=== PATIENT | female | born 1955 | race Caucasian/White ===

== ENCOUNTER 2022-12-16 18:49 | Emergency (ER) | payer OTHER ==
[~2022-12-16] VITALS: Ht 170.2 cm; Wt 93.9 kg
--- NOTE | 2022-12-16 18:57 | NUR ---
[facility] TO BED #8
[2022-12-16 18:58] VITALS: BP 122/58
--- NOTE | 2022-12-16 19:21 | NUR ---
Cira tesfaye in [facility] - 12/16/22 at 1921 by [facility] REPORT GIVEN TO LUCIANA TAYLOR TRANSFER OF CARE AT THIS TIME
--- NOTE | 2022-12-16 19:31 | NUR ---
pt getting blood drawn
[2022-12-16 19:35] LABS: HEMATOCRIT 42.9 % (36-48); HEMOGLOBIN 14.3 g/dL (12.0-16.0); MEAN CORPUSCULAR HEMOGLOBIN 31 pg (27-31); MEAN CORPUSCULAR HGB CONC 33 g/dL (33-37); PLATELET COUNT (AUTO) 324 K/uL (140-450); RED BLOOD CELL COUNT(AUTO) 4.61 MIL/uL (4.20-5.40); RED CELL DISTRIBUTION WIDTH 13.4 % (11.6-13.7); WHITE BLOOD COUNT (AUTO) 10.2 K/uL (4.8-10.8)
[2022-12-16 19:36] LABS: BASOPHILS % (AUTO) 0.2 % (0.0-2.0); EOSINOPHILS # (AUTO) 0.1 K/uL (0-0.4); LYMPHOCYTES # (AUTO) 2.1 K/uL (2.5-16.5); LYMPHOCYTES % (AUTO) 20.2 % (20.5-51.1); MONOCYTES # (AUTO) 0.7 K/uL (0.8-1.0); MONOCYTES % (AUTO) 6.7 % (1.7-9.3); NEUTROPHILS # (AUTO) 7.3 K/uL (1.8-7.7); NEUTROPHILS % (AUTO) 71.9 % (42.2-75.2)
[2022-12-16 19:46] LABS: ANION GAP 14.3 (8-16); CARBON DIOXIDE 26.9 mmol/L (21-32); CREATININE 1.3 mg/dL (0.6-1.3); POTASSIUM 4.2 mmol/L (3.5-5.1)
--- NOTE | 2022-12-16 20:22 | NUR ---
BLOOD SUGAR 86. DR CARRINGTON AWARE
--- NOTE | 2022-12-16 20:25 | NUR ---
Snack is provided for a patient
--- NOTE | 2022-12-16 20:30 | NUR ---
went to the restroom
--- NOTE | 2022-12-16 20:36 | NUR ---
urine sent to the lab
[2022-12-16 20:48] LABS: APPEARANCE,URINE CLOUDY (CLEAR); BILIRUBIN,URINE NEGATIVE (NEGATIVE); BLOOD, URINE TRACE-I (NEGATIVE); COLOR,URINE AMBER (YELLOW); LEUKOCYTE ESTERASE ,URINE 3+ (NEGATIVE); NITRITE, URINE NEGATIVE (NEGATIVE); UGLUCOSE NEGATIVE (NEGATIVE)
[2022-12-16 21:03] LABS: RBC,URINE 0-5 /HPF (0-5)
[2022-12-16] MEDS ORDERED: CEPH-588 PO (21:27)
[2022-12-16 21:30] VITALS: BP 115/60
--- NOTE | 2022-12-16 22:05 | NUR ---
Patient discharged with v/s stable. Written and verbal after care instructions given and explained. Patient alert, oriented and verbalized understanding of instructions. Ambulatory with steady gait. All questions addressed prior to discharge. ID band removed. Patient advised to follow up with PMD. Rx of kelfex given. Patient educated on indication of medication including possible reaction and side effects. Opportunity to ask questions provided and answered.
== END 2022-12-16 22:05 | disposition home or self-care (01) ==
LOC: MED 18:49
DX: E11.649 Type 2 diabetes mellitus with hypoglycemia without coma (principal); N39.0 Urinary tract infection, site not specified; Z79.899 Other long term (current) drug therapy
CPT/HCPCS: 36415; 71045; 80048; 81001; 85025; 87086; 99284